=== PATIENT | male | born 1990 | race Caucasian/White ===

== ENCOUNTER 2020-08-16 15:44 | Emergency (ER) | payer OTHER ==
[~2020-08-16] VITALS: Ht 172.7 cm; Wt 63.5 kg
[~2020-08-16 15:44] MED LIST: HYDROCODON-ACE1 EAC7 PO; IBUPROFEN 600600 M1 PO; NOHOMEMEDICATIONS; ROBAXIN500 MG PO; TRAMADOL 50 MG50 MG PO
[2020-08-16] MEDS ORDERED: NORCO 5-325 TA1 EAC2 PO (17:45)
[2020-08-16 17:57] VITALS: BP 113/65
== END 2020-08-16 17:57 | disposition home or self-care (01) ==
LOC: M.ERS 15:44
DX: S62.292A Other fracture of first metacarpal bone, left hand, initial encounter for closed fracture (principal); F17.210 Nicotine dependence, cigarettes, uncomplicated; W22.8XXA Striking against or struck by other objects, initial encounter; Y93.89 Activity, other specified; Y92.89 Other specified places as the place of occurrence of the external cause; Y99.8 Other external cause status